=== PATIENT | female | born 1940 | race Hispanic/Latino ===

== ENCOUNTER 2020-07-08 12:15 | Outpatient (CLI) | payer MEDICARE ==
--- NOTE | 2020-07-08 13:43 | Mammography Report ---
DIGITAL DIAGNOSTIC MAMMOGRAM WITH CAD CONVENTIONAL, 07/08/2020 CLINICAL INFORMATION / INDICATION: Patient presents for evaluation of focal pain in the right breast . Patient has history of benign left breast stereotactic biopsy. TECHNIQUE: Digital bilateral mammographic imaging was performed. Spot compression views were obtaine d. This examination was interpreted with the benefit of Computer-aided Detection analysis. COMPARISON: Prior mammograms 09/15/2019 and 09/13/2018 FINDINGS: Breast Density: There are scattered areas of fibroglandular density. No dominant mass, suspicious calcifications or architectural distortion in either breast. There is a stable biopsy clip seen in the left breast. There has been no significant change compared with the prior examinations. There is no mammographic abnormality to account for right breast pain. IMPRESSION: 1. There is no mammographic abnormality to account for right breast pain, therefore clinical correlat ion is recommended. Follow up recommendation: Routine yearly BI-RADS Category 2: Benign. A "normal" or negative report should not discourage follow up or biopsy of a clinically significant f inding. A written summary of these findings will be mailed to the patient. The patient will be entered into a mammography reporting system which will generate a reminder letter for the patient's next appointmen t at the appropriate interval. According to the [employer], yearly mammograms are recommended starting at age 40 and continuing as long as a woman is in good health. Breast MRI is recommended for women with an sebastian roximately 20-25% or greater lifetime risk of breast cancer, including women with a strong family his tory of breast or ovarian cancer and women who have been treated for Hodgkin's disease. Signer Name: Mary Jane Lopez MD Signed: 07/08/2020 1:38 PM Workstation Name: [employer]
== END 2020-07-08 12:16 | disposition home or self-care (01) ==
LOC: SPVWC 12:15
PROVIDERS: ATTEND Surgery
DX: N64.4 Mastodynia (principal)
CPT/HCPCS: 77066

== ENCOUNTER 2020-09-17 09:12 | Outpatient (CLI) | payer MEDICARE ==
--- NOTE | 2020-09-17 11:03 | Mammography Report ---
DIGITAL SCREENING MAMMOGRAM WITH CAD, 09/17/2020 CLINICAL INFORMATION / INDICATION: Routine screening mammography. SCREENING MAMMO TECHNIQUE: Digital bilateral 2D mammography was obtained in the craniocaudal and mediolateral obliqu e projections. This examination was interpreted with the benefit of Computer-Aided Detection analysis . COMPARISON: 09/15/2019 FINDINGS: Breast Density: There are scattered areas of fibroglandular density. No dominant mass, suspicious calcifications, or architectural distortion in either breast. Biopsy clip again noted on the left. IMPRESSION: No mammographic evidence of malignancy. Follow up recommendation: Routine yearly BI-RADS Category 2: Benign. A "normal" or negative report should not discourage follow up or biopsy of a clinically significant f inding. A written summary of these findings will be mailed to the patient. The patient will be entered into a mammography reporting system which will generate a reminder letter for the patient's next appointmen t at the appropriate interval. The [employer] recommends yearly mammograms starting at age 40 and continuing as l cayden as a woman is in good health. Breast MRI is recommended for women with an approximate 20-25% or greater lifetime risk of breast cancer, including women with a strong family history of breast or ova saeed cancer or who have been treated for Hodgkin's disease. Signer Name: Nadno Garcia MD Signed: 09/17/2020 10:59 AM Workstation Name: [id number]
== END 2020-09-17 09:13 | disposition home or self-care (01) ==
LOC: SPVWC 09:12
PROVIDERS: ATTEND Surgery
DX: Z12.31 Encounter for screening mammogram for malignant neoplasm of breast (principal)
CPT/HCPCS: 77067